=== PATIENT | male | born 1940 | race Caucasian/White ===

== ENCOUNTER 2016-12-31 05:54 | Inpatient (IN) | payer OTHER ==
[2016-12-30 16:07] LABS: WBC (NOT ORDERED) (RFLEX) 0 (0-5)
[2016-12-30 16:56] LABS: PROTIME (NOT ORD) 12.8 SEC (12.0-14.5)
[2016-12-30 17:08] LABS: % IRON SAT 26 % (20-50); A/G RATIO 1.1 (0.7-1.9); ALBUMIN 3.7 G/DL (3.5-5.0); ALKALINE PHOSPHATASE 75 U/L (45-117); BUN (BLOOD UREA NITROGEN) 10 MG/DL (6-23); CALCIUM, SERUM 8.6 MG/DL (8.5-10.4); CHLORIDE, SERUM 106 MMOL/L (96-112); CO2 (CARBON DIOXIDE) 28 MMOL/L (24-34); CREATININE 1.02 MG/DL (0.70-1.30); GFR AFRICAN AMERICAN 84 ML/MIN (>=60); GFR NON AFRICAN AMERICAN 72 ML/MIN (>=60); GLOBULIN 3.4 G/DL (2.5-4.1); GLUCOSE, SERUM 94 MG/DL (60-99); IRON BINDING CAPACITY 319 MCG/DL (250-450); IRON, SERUM 83 MCG/DL (35-150); POTASSIUM, SERUM 3.9 MMOL/L (3.5-5.3); SGOT(AST) 21 U/L (5-40); SGPT(ALT) 35 U/L (5-65); SODIUM, SERUM 140 MMOL/L (135-148); TOTAL BILIRUBIN 0.3 MG/DL (0-1.2); TOTAL PROTEIN 7.1 G/DL (6.0-8.5)
[2016-12-30 17:09] LABS: ASCORBIC ACID (UR NOT ORDER) NEG (NEG); BILIRUBIN, URINE NEGATIVE (NEG); KETONE, URINE NEGATIVE (NEG); LEUKOCYTE ESTERASE(NOT OR NEG (NEG)
--- NOTE | ~2016-12-31 | DS ---
Discharge Summary [facility] [address] [place]. [address] NAME: PATRICIA DEMPSEY : 44 STATUS : DIS IN PAT#: [id number] AGE: 76 ADM/REG DATE : 12/31/16 MR#: [id number] REPORT SERV DATE: 01/15/17 DICTATED BY: PARISH NARAYAN DATE: 01/14/17 REPORT STATUS : Draft TRANSCRIBED BY: MODIrvin DATE: 01/14/17 Data Collection from hospitalization DISCHARGE DIAGNOSES: 1. Coronary artery disease. 2. Hypertension. 3. Melanoma. 4. Lipoma. 5. Arthritis. 6. Gout. 7. Tobacco use. CONSULTATIONS: Dr. Master Montero. PROCEDURES PERFORMED: Coronary artery bypass grafting x5 with endoscopic vein harvest utilizing the [place] to the LAD, reverse saphenous vein graft from the aorta to the diagonal artery #1 from the aorta to the ramus intermedius, from the aorta in a sequential fashion to the osseous marginal artery and posterolateral branch of the right coronary artery. Also of note, the left internal mammary artery to the LAD artery and transesophageal echocardiography, 12/31/2016. DISCHARGE MEDICATIONS: Cordarone 200 mg twice a day, aspirin 81 mg daily, vitamin B12 1000 mcg daily, Apresoline 10 mg every eight hours, [place] 5/325 one to two tablets every six hours as needed, Prinivil 5 mg daily, fish oil 2000 mg daily, Protonix 40 mg before breakfast, Crestor 20 mg at bedtime. He was instructed not to continue Imdur or metoprolol. CONDITION AT DISCHARGE: Stable. DISPOSITION: The patient was discharged home on a low-cholesterol, low-sodium, 1800-calorie cardiac/diabetic diet with activities as instructed. He would follow up with me on 01/26/2017, he would follow up with Dr. Montero in two to three weeks following discharge. HOSPITAL COURSE: This is a 76-year-old man who has severe three-vessel coronary artery disease and unstable angina. The patient has relatively well-preserved left ventricular function. Treatment options were discussed and it was elected to proceed with surgical intervention. He was admitted to the hospital at this time for further evaluation and treatment. Upon admission, he was taken to the operating room where he underwent the above-mentioned procedure. He tolerated this well. There were no complications. Postoperatively, he was seen by Dr. Master Montero. He had had no immediate complications. He was still presently intubated and sedated. He was in a normal sinus rhythm. He was on low-dose dobutamine and was stable. Routine postop care continued. Amiodarone was continued. We encouraged him to stop smoking. On postop day 1, he remained in a sinus rhythm. He was off all cardiac drips. Oral amiodarone continued. He had no arrhythmias at this time. We encouraged him to ambulate. He was up sitting in a chair. Blood pressure was under better control. He did complain of being sore. Diuresis was being provided. Platelet count was stable. Discharge Summary [facility] [id number] [place]. [address] NAME: PATRICIA DEMPSEY : 44 STATUS : DIS IN [facility]#: [id number] AGE: 76 ADM/REG DATE : 12/31/16 MR#: [id number] REPORT SERV DATE: 01/15/17 DICTATED BY: PARISH NARAYAN DATE: 01/14/17 REPORT STATUS : Draft TRANSCRIBED BY: VU DATE: 01/14/17 On 01/03/2017, he said he felt weak and tired. He had mild shortness of breath. Amiodarone was decreased. He continued to do well. Discharge planning was performed. Chest tubes and pacing wires were removed. He had no new complaints. He was evaluated by Physical Therapy. On 01/05/2017, chest x-ray showed small pleural effusions. He had coarse breath sounds with rhonchi. Discharge instructions were given. Due to his improved and stable condition, he was discharged home with the above-stated instructions. Information collected by: Constanza Aguilar I submit the above information as my discharge summary. MARIO/VU Parish Narayan M.D. / [id number] CC: Jerome Durham M.D. John Carter Hemphill, MD
--- NOTE | ~2016-12-31 | OP ---
Record Of Operation [facility] [address] [place]. [address] NAME: PATRICIA DMEPSEY : 44 STATUS : ADM IN PAT#: [id number] AGE: 76 ADM/REG DATE : 12/31/16 MR#: [id number] REPORT SERV DATE: 12/31/16 DICTATED BY: PARISH NARAYAN DATE: 12/31/16 REPORT STATUS : Draft TRANSCRIBED BY: MODL DATE: 12/31/16 DATE OF PROCEDURE: 12/31/2016 PREOPERATIVE DIAGNOSIS: Coronary artery disease and unstable angina. POSTOPERATIVE DIAGNOSIS: Coronary artery disease and unstable angina. OPERATIVE PROCEDURES: Coronary artery bypass grafting x5, endoscopic vein harvest utilizing the left internal mammary artery to the LAD artery, reverse saphenous vein graft from the aorta to the diagonal artery #1, from the aorta to the ramus intermedius, from the aorta in a sequential fashion to the obtuse marginal artery and the posterolateral branch of right coronary artery. Also of note, the left internal mammary artery to the LAD artery. Transesophageal echocardiography. OPERATIVE SURGEON: Parish Narayan M.D. ANESTHESIA: General endotracheal anesthesia, AA. Chest tubes placed were 2. Pacing wires were 2 on the right ventricle. PERTINENT HISTORY: The patient is a 76-year-old gentleman from Dr. Parihs Cunningham with severe 3-vessel coronary artery disease and unstable angina. The patient had a relatively well preserved left ventricular function. OPERATIVE FINDINGS: The patient had transesophageal echocardiogram which demonstrated no significant valvular heart disease and relatively well preserved left ventricular function. The coronary artery disease was very diffuse. OPERATIVE PROCEDURE: The patient was taken to the operating room, placed in supine position. Anesthesia was obtained. The patient was prepped and draped in the usual sterile fashion. Transesophageal echocardiogram was performed demonstrating no significant valvular heart disease. Greater saphenous vein harvested to the lower extremities with an invasive technique and those wounds closed in a two-layer fashion. Midline sternotomy incision was made. Sternum was divided. Left internal mammary artery was dissected and found to have good flow. Heparin was infused. The patient was started on cardiopulmonary bypass. Cross- clamp was applied. Cardioplegia was infused in antegrade and retrograde fashion over a period of 15 minutes. The posterolateral branch of the right coronary artery was bypassed to the reverse saphenous vein graft in an end-to-side fashion. Vein graft was brought to the left side of the heart and used to bypass the obtuse marginal artery in a [id number] fashion. The ramus intermedius was bypassed to the reverse saphenous vein graft in an end- to-side fashion, then the first diagonal artery was bypassed to the reverse saphenous vein graft in an end-to-side fashion. The left internal mammary artery was used to bypass the LAD artery in an end-to-side fashion. Crossclamp was then placed with 3 proximal anastomoses on the ascending aorta. Cross-clamp was removed. Hemostasis was noted. Two pacing wires on the right ventricle. Two chest tubes were placed. The patient was warmed to 36 centigrade to obtain a sinus rhythm. He was then weaned from cardiopulmonary bypass with Record Of Operation [address] [place]. [address] NAME: PATRICIA DEMPSEY : 44 STATUS : ADM IN [facility]#: [id number] AGE: 76 ADM/REG DATE : 12/31/16 MR#: [id number] REPORT SERV DATE: 12/31/16 DICTATED BY: PARISH NARAYAN DATE: 12/31/16 REPORT STATUS : Draft TRANSCRIBED BY: MODL DATE: 12/31/16 mild inotropic support. Protamine sulfate was infused. Hemostasis was adequate. Sternum was closed with four sternal cables. Soft tissue closed in manner as stated above. The patient tolerated the procedure well and taken back to the ICU in stable condition. JOHNNY/VU Parish Narayan M.D. / [id number] CC: Jerome Durham M.D.
[~2016-12-31 05:54] MED LIST: ALEVE220 MG PO; ASAB PO; CRESTOR20 MG PO; CYANO1000T PO; FISH-EPA1000 MG PO; IMDUR30 PO; LOP25 PO; MULTIPLE VIT PO; RED YEAS1 PO; ZOCOR10 PO
[2016-12-31 14:23] LABS: BE (BASE EXCESS) -1.2 MEQ/L (0 +/- 2.5); CARBOXYHEMOGLOBIN 0.3 % (0-3); HCO3 (ACTUAL BICARBONATE) 23.9 MEQ/L (23-27); HEMOBLOGIN CONTENT 11.8 G/DL (14-18); INSTRUMENT SERIAL # 11843; METHEMOGLOBIN 0.8 % (0-3); MODE SIMV; O2 CONTENT 16.7 VOL% (18-24); OPERATOR ID 18642; PCO2 (CO2 TENSION) 41 MMHG (35-45); PO2 (O2 TENSION) 243 MMHG (79-93); PRESSURE SUPPORT 0 cm.H2O; SAMPLE Arterial; TIDAL VOLUME 700 ML; pH 7.38 (7.37-7.43)
[2016-12-31 14:31] LABS: PLATELET COUNT 94 10/3/uL (150-400)
[2016-12-31 14:41] LABS: INTERNATIONAL NORMAL RATI 1.4 UNITS (-); PARTIAL THROMBO TIME 34.3 SEC (22.5-37.2)
[2016-12-31 14:45] LABS: BUN (BLOOD UREA NITROGEN) 11 MG/DL (6-23); CALCIUM, SERUM 7.6 MG/DL (8.5-10.4); CHLORIDE, SERUM 110 MMOL/L (96-112); CO2 (CARBON DIOXIDE) 26 MMOL/L (24-34); CREATININE 0.94 MG/DL (0.70-1.30); GFR AFRICAN AMERICAN 92 ML/MIN (>=60); GFR NON AFRICAN AMERICAN 80 ML/MIN (>=60); GLUCOSE, SERUM 140 MG/DL (60-99); POTASSIUM, SERUM 3.9 MMOL/L (3.5-5.3); PROTIME (NOT ORD) 17.1 SEC (12.0-14.5); SODIUM, SERUM 143 MMOL/L (135-148)
[2016-12-31 19:26] LABS: BE (BASE EXCESS) -1.9 MEQ/L (0 +/- 2.5); CARBOXYHEMOGLOBIN 0.3 % (0-3); DEVICE NC; HCO3 (ACTUAL BICARBONATE) 22.4 MEQ/L (23-27); HEMOBLOGIN CONTENT 12.5 G/DL (14-18); INSTRUMENT SERIAL # 11843; METHEMOGLOBIN 0.6 % (0-3); O2 CONTENT 16.6 VOL% (18-24); OPERATOR ID 31061; PCO2 (CO2 TENSION) 37 MMHG (35-45); PO2 (O2 TENSION) 77 MMHG (79-93); SAMPLE Arterial
[2016-12-31 20:17] LABS: HEMATOCRIT 34.3 % (40.0-51.0); HEMOGLOBIN 11.7 g/dL (13.6-17.8)
[2016-12-31 20:32] LABS: BUN (BLOOD UREA NITROGEN) 10 MG/DL (6-23); CALCIUM, SERUM 7.5 MG/DL (8.5-10.4); CHLORIDE, SERUM 115 MMOL/L (96-112); CO2 (CARBON DIOXIDE) 25 MMOL/L (24-34); CREATININE 1.01 MG/DL (0.70-1.30); GFR AFRICAN AMERICAN 85 ML/MIN (>=60); GFR NON AFRICAN AMERICAN 73 ML/MIN (>=60); POTASSIUM, SERUM 3.7 MMOL/L (3.5-5.3); SODIUM, SERUM 146 MMOL/L (135-148)
[2016-12-31 20:34] LABS: GLUCOSE, SERUM 110 MG/DL (60-99)
[2017-01-01 03:24] LABS: BASOPHILS 0 %; EOSINOPHILS 0.4 %; EOSINOPHILS ABSOLUTE 0.01 10/3/uL (0.0-0.53); HEMATOCRIT 32.5 % (40.0-51.0); HEMOGLOBIN 10.9 g/dL (13.6-17.8); LYMPHOCYTES 16.2 %; LYMPHOCYTES ABSOLUTE 0.44 10/3/uL (0.67-4.30); MEAN CORPUS HGB CONC 33.5 g/dL (32.0-36.0); MEAN CORPUSCULAR HEMOGLOB 29.8 pg (26.0-34.0); MEAN CORPUSCULAR VOLUME 88.8 fL (80-100); MEAN PLATELET VOLUME 8.6 fL (9.2-13.0); MONOCYTES ABSOLUTE 0.19 10/3/uL (0.21-1.20); NEUTROPHILS 76.4 %; NEUTROPHILS ABSOLUTE 2.07 10/3/uL (2.02-8.40); PLATELET COUNT 86 10/3/uL (150-400); RBC DISTRIBUTION WIDTH 14.1 % (12.0-16.0)
[2017-01-01 03:25] LABS: MANUAL DIFF NO %; RED CELL COUNT 3.66 10/6/uL (4.7-6.1); WHITE BLOOD CELLS 2.7 10/3/uL (4.5-10.5)
[2017-01-01 03:37] LABS: BUN (BLOOD UREA NITROGEN) 10 MG/DL (6-23); CALCIUM, SERUM 7.4 MG/DL (8.5-10.4); CHLORIDE, SERUM 114 MMOL/L (96-112); CO2 (CARBON DIOXIDE) 24 MMOL/L (24-34); CREATININE 0.85 MG/DL (0.70-1.30); GFR AFRICAN AMERICAN 99 ML/MIN (>=60); GFR NON AFRICAN AMERICAN 86 ML/MIN (>=60); GLUCOSE, SERUM 112 MG/DL (60-99); SODIUM, SERUM 147 MMOL/L (135-148)
[2017-01-01 03:38] LABS: POTASSIUM, SERUM 4.7 MMOL/L (3.5-5.3)
[2017-01-01 19:00] LABS: HEMATOCRIT 34.4 % (40.0-51.0); HEMOGLOBIN 11.4 g/dL (13.6-17.8)
[2017-01-02 03:31] LABS: BASOPHILS 0.2 %; BASOPHILS ABSOLUTE 0.01 10/3/uL (0.0-0.16); EOSINOPHILS 0.2 %; EOSINOPHILS ABSOLUTE 0.01 10/3/uL (0.0-0.53); HEMATOCRIT 34.3 % (40.0-51.0); HEMOGLOBIN 11.7 g/dL (13.6-17.8); LYMPHOCYTES 19.8 %; LYMPHOCYTES ABSOLUTE 0.83 10/3/uL (0.67-4.30); MEAN CORPUS HGB CONC 34.1 g/dL (32.0-36.0); MEAN CORPUSCULAR HEMOGLOB 30.5 pg (26.0-34.0); MEAN CORPUSCULAR VOLUME 89.3 fL (80-100); MEAN PLATELET VOLUME 8.6 fL (9.2-13.0); MONOCYTES 7.1 %; NEUTROPHILS 72.7 %; NEUTROPHILS ABSOLUTE 3.05 10/3/uL (2.02-8.40); PLATELET COUNT 87 10/3/uL (150-400); RBC DISTRIBUTION WIDTH 14.3 % (12.0-16.0); RED CELL COUNT 3.84 10/6/uL (4.7-6.1)
[2017-01-02 03:43] LABS: MANUAL DIFF NO %; WHITE BLOOD CELLS 4.2 10/3/uL (4.5-10.5)
[2017-01-02 03:48] LABS: BUN (BLOOD UREA NITROGEN) 12 MG/DL (6-23); CHLORIDE, SERUM 108 MMOL/L (96-112); CO2 (CARBON DIOXIDE) 25 MMOL/L (24-34); CREATININE 0.82 MG/DL (0.70-1.30); GFR AFRICAN AMERICAN 101 ML/MIN (>=60); GFR NON AFRICAN AMERICAN 87 ML/MIN (>=60); GLUCOSE, SERUM 115 MG/DL (60-99); POTASSIUM, SERUM 4.2 MMOL/L (3.5-5.3); SODIUM, SERUM 142 MMOL/L (135-148)
[2017-01-02 11:59] LABS: POTASSIUM, SERUM 3.8 MMOL/L (3.5-5.3)
[2017-01-03 04:50] LABS: BASOPHILS 0.2 %; BASOPHILS ABSOLUTE 0.01 10/3/uL (0.0-0.16); EOSINOPHILS 0.5 %; EOSINOPHILS ABSOLUTE 0.02 10/3/uL (0.0-0.53); HEMATOCRIT 35.3 % (40.0-51.0); HEMOGLOBIN 11.9 g/dL (13.6-17.8); IMMATURE GRANULOCYTES 0.2 %; IMMATURE GRANULOCYTES ABSOLUTE 0.01 10/3/uL (0.0-0.11); LYMPHOCYTES 20.3 %; LYMPHOCYTES ABSOLUTE 0.85 10/3/uL (0.67-4.30); MEAN CORPUS HGB CONC 33.7 g/dL (32.0-36.0); MEAN CORPUSCULAR HEMOGLOB 30.1 pg (26.0-34.0); MEAN CORPUSCULAR VOLUME 89.4 fL (80-100); MEAN PLATELET VOLUME 9.1 fL (9.2-13.0); MONOCYTES 8.6 %; MONOCYTES ABSOLUTE 0.36 10/3/uL (0.21-1.20); NEUTROPHILS 70.2 %; NEUTROPHILS ABSOLUTE 2.94 10/3/uL (2.02-8.40); PLATELET COUNT 87 10/3/uL (150-400); RBC DISTRIBUTION WIDTH 14.1 % (12.0-16.0); RED CELL COUNT 3.95 10/6/uL (4.7-6.1); WHITE BLOOD CELLS 4.2 10/3/uL (4.5-10.5)
[2017-01-03 04:51] LABS: MANUAL DIFF NO %
[2017-01-03 05:06] LABS: BUN (BLOOD UREA NITROGEN) 16 MG/DL (6-23); CALCIUM, SERUM 8.4 MG/DL (8.5-10.4); CHLORIDE, SERUM 99 MMOL/L (96-112); CO2 (CARBON DIOXIDE) 29 MMOL/L (24-34); CREATININE 0.86 MG/DL (0.70-1.30); GFR AFRICAN AMERICAN 99 ML/MIN (>=60); GFR NON AFRICAN AMERICAN 85 ML/MIN (>=60); GLUCOSE, SERUM 110 MG/DL (60-99); POTASSIUM, SERUM 4.1 MMOL/L (3.5-5.3); SODIUM, SERUM 136 MMOL/L (135-148)
[2017-01-04 04:04] LABS: BASOPHILS 0.3 %; BASOPHILS ABSOLUTE 0.01 10/3/uL (0.0-0.16); EOSINOPHILS 1.1 %; EOSINOPHILS ABSOLUTE 0.04 10/3/uL (0.0-0.53); HEMATOCRIT 33.5 % (40.0-51.0); HEMOGLOBIN 11.8 g/dL (13.6-17.8); IMMATURE GRANULOCYTES 0.3 %; IMMATURE GRANULOCYTES ABSOLUTE 0.01 10/3/uL (0.0-0.11); LYMPHOCYTES 18.1 %; LYMPHOCYTES ABSOLUTE 0.64 10/3/uL (0.67-4.30); MEAN CORPUS HGB CONC 35.2 g/dL (32.0-36.0); MEAN CORPUSCULAR HEMOGLOB 30.3 pg (26.0-34.0); MEAN PLATELET VOLUME 9.4 fL (9.2-13.0); MONOCYTES 10.2 %; MONOCYTES ABSOLUTE 0.36 10/3/uL (0.21-1.20); NEUTROPHILS ABSOLUTE 2.47 10/3/uL (2.02-8.40); PLATELET COUNT 101 10/3/uL (150-400); RBC DISTRIBUTION WIDTH 14.1 % (12.0-16.0); RED CELL COUNT 3.89 10/6/uL (4.7-6.1); WHITE BLOOD CELLS 3.5 10/3/uL (4.5-10.5)
[2017-01-04 04:07] LABS: MANUAL DIFF NO %; MEAN CORPUSCULAR VOLUME 86.1 fL (80-100)
[2017-01-04 04:16] LABS: CALCIUM, SERUM 8.1 MG/DL (8.5-10.4); CHLORIDE, SERUM 100 MMOL/L (96-112); CO2 (CARBON DIOXIDE) 28 MMOL/L (24-34); CREATININE 0.93 MG/DL (0.70-1.30); GFR AFRICAN AMERICAN 93 ML/MIN (>=60); GFR NON AFRICAN AMERICAN 81 ML/MIN (>=60); GLUCOSE, SERUM 110 MG/DL (60-99); POTASSIUM, SERUM 3.7 MMOL/L (3.5-5.3); SODIUM, SERUM 135 MMOL/L (135-148)
[2017-01-04 04:21] LABS: BUN (BLOOD UREA NITROGEN) 24 MG/DL (6-23)
[2017-01-05 03:48] LABS: BASOPHILS 0.5 %; BASOPHILS ABSOLUTE 0.02 10/3/uL (0.0-0.16); EOSINOPHILS 1.3 %; EOSINOPHILS ABSOLUTE 0.05 10/3/uL (0.0-0.53); HEMATOCRIT 34.7 % (40.0-51.0); HEMOGLOBIN 12.1 g/dL (13.6-17.8); IMMATURE GRANULOCYTES 0.3 %; IMMATURE GRANULOCYTES ABSOLUTE 0.01 10/3/uL (0.0-0.11); LYMPHOCYTES 25.7 %; LYMPHOCYTES ABSOLUTE 0.98 10/3/uL (0.67-4.30); MEAN CORPUS HGB CONC 34.9 g/dL (32.0-36.0); MEAN CORPUSCULAR HEMOGLOB 30.2 pg (26.0-34.0); MEAN CORPUSCULAR VOLUME 86.5 fL (80-100); MEAN PLATELET VOLUME 8.9 fL (9.2-13.0); MONOCYTES 9.7 %; MONOCYTES ABSOLUTE 0.37 10/3/uL (0.21-1.20); NEUTROPHILS 62.5 %; NEUTROPHILS ABSOLUTE 2.38 10/3/uL (2.02-8.40); RBC DISTRIBUTION WIDTH 13.5 % (12.0-16.0); RED CELL COUNT 4.01 10/6/uL (4.7-6.1); WHITE BLOOD CELLS 3.8 10/3/uL (4.5-10.5)
[2017-01-05 03:53] LABS: MANUAL DIFF NO %; PLATELET COUNT 136 10/3/uL (150-400)
[2017-01-05 03:55] LABS: BUN (BLOOD UREA NITROGEN) 14 MG/DL (6-23); CALCIUM, SERUM 8.4 MG/DL (8.5-10.4); CHLORIDE, SERUM 103 MMOL/L (96-112); CO2 (CARBON DIOXIDE) 28 MMOL/L (24-34); GFR AFRICAN AMERICAN 102 ML/MIN (>=60); GFR NON AFRICAN AMERICAN 88 ML/MIN (>=60); GLUCOSE, SERUM 101 MG/DL (60-99); SODIUM, SERUM 140 MMOL/L (135-148)
[2017-01-05] MEDS ORDERED: NORCO1 TA1 PO (18:20)
[2017-01-05] MEDS ORDERED: PRIN5 PO (19:04)
[2017-01-05] MEDS ORDERED: PROTONIX PO (19:05)
[2017-01-05] MEDS ORDERED: APRES10B PO (19:05)
[2017-01-05] MEDS ORDERED: CORDARONE PO (19:06)
[2017-01-05] MEDS ORDERED: CRESTOR10 PO (19:06)
== END 2017-01-05 19:56 | disposition home or self-care (01) | DRG 236 ==
LOC: SDC/OF 05:54 → CVICU 12:21 → 5NO 01-02 15:28
PROVIDERS: Thoracic Surgery (Cardiothoracic Vascular Surgery)
PROC: 06BQ0ZZ Excision of Left Saphenous Vein, Open Approach (ICD-10-PCS; 2016-12-31)
PROC: 06BP4ZZ Excision of Right Saphenous Vein, Percutaneous Endoscopic Approach (ICD-10-PCS; 2016-12-31)
PROC: 5A1221Z Performance of Cardiac Output, Continuous (ICD-10-PCS; 2016-12-31)
PROC: B246ZZ4 Ultrasonography of Right and Left Heart, Transesophageal (ICD-10-PCS; 2016-12-31)
PROC: 021309W Bypass Coronary Artery, Four or More Arteries from Aorta with Autologous Venous Tissue, Open Approach (ICD-10-PCS; principal; 2016-12-31 08:30)
PROC: 0210099 Bypass Coronary Artery, One Artery from Left Internal Mammary with Autologous Venous Tissue, Open Approach (ICD-10-PCS; 2016-12-31 08:30)
DX: I25.110 Atherosclerotic heart disease of native coronary artery with unstable angina pectoris (principal); I48.2 Chronic atrial fibrillation; J44.9 Chronic obstructive pulmonary disease, unspecified; F17.210 Nicotine dependence, cigarettes, uncomplicated; I10 Essential (primary) hypertension
CPT/HCPCS: 36415; 71010; 71020; 80048; 80053; 81001; 82330; 82803; 82805; 82947; 82962; 83036; 83540; 83550; 83735; 84132; 84295; 85014; 85018; 85025; 85049; 85347; 85610; 85730; 86850; 86900; 86901; 86920; 87641; 93005; 93312; 93320; 93325; 94002; 94640; 94660; 94667; 94668; 94770; 97161-GP; A9270-GY; C1725; C1769; C1894; J0690; J1644; J1885; J1940; J2150; J2250; J2370; J2405; J2440; J2720; J2930; J3010; J3370; J3475; J3480; P9045; P9047